=== PATIENT | female | born 1960 | race Caucasian/White ===

== ENCOUNTER 2018-09-21 16:11 | Observation (INO) ==
[2018-09-21] MEDS ORDERED: Ibuprofen 600 MG Tablet PO ONE (16:25)
[2018-09-21] MEDS ORDERED: Sod Chloride 0.9% Inj 1,000 ML IV.SIG SCH (16:30)
[2018-09-21] MEDS ORDERED: Sod Chloride 0.9% Inj 800 ML IV.SIG SCH (16:30)
--- NOTE | 2018-09-21 16:36 | ED ---
HPI General Chief complaint: Respiratory Symptoms Stated complaint: low 02 sat/flu Time Seen by Provider: 09/21/18 16:17 Source: patient and family Mode of arrival: ambulatory Limitations: no limitations History of Present Illness HPI narrative: 57-year-old female with history of COPD, sent in from an urgent care facility for evaluation of influenza A and hypoxia. Patient reports that she began to feel ill yesterday evening with symptoms that included cough, generalized malaise, nausea, and a few episodes of vomiting, and fever. Symptoms worsened today. Patient presents with paperwork from the urgent care facility where she was that shows that she arrived with an oral temp of 104 F and a saturation of 91% on room air. She tested positive for influenza A. She was given 8 mg of Decadron, and albuterol treatment, and a prescription for Tamiflu. The patient took the first dose of Tamiflu prior to arrival. She also had a chest x-ray performed there that showed no acute disease. She feels slightly improved since receiving the aforementioned treatments, however she still feels short of breath, has generalized malaise, generalized weakness. She has had a nonproductive cough. She does feel dyspnea at rest, worse with exertion. Related Data Home Medications Medication Instructions Recorded Confirmed acitretin [Soriatane] 10 mg PO DAILY 09/21/18 09/21/18 albuterol sulfate [Ventolin HFA] 1 puff INHALATION Q6H PRN 09/21/18 09/21/18 alprazolam 0.5 mg PO TID PRN 09/21/18 09/21/18 ezetimibe 10 mg PO DAILY 09/21/18 09/21/18 inhalational spacing device 09/21/18 09/21/18 [Aerochamber Mini] lisinopril 20 mg PO DAILY 09/21/18 09/21/18 omeprazole 20 mg PO DAILY 09/21/18 09/21/18 pravastatin 20 mg PO DAILY 09/21/18 09/21/18 quetiapine 25 mg PO DAILY 09/21/18 09/21/18 timolol maleate 1 drp OPHTHALMIC (EYE) DAILY 09/21/18 09/21/18 triamcinolone acetonide 0.1 % TOPICAL DAILY 09/21/18 09/21/18 umeclidinium-vilanterol [Anoro 1 inh INHALATION Q24H 09/21/18 09/21/18 Ellipta] Allergies Allergy/AdvReac Type Severity Reaction Status Date / Time No Known Allergies Allergy Verified 09/21/18 16:15 Review of Systems ROS: all other systems reviewed are negative [facility] Medical History Medical History COPD (chronic obstructive pulmonary disease) (Acute) High cholesterol (Acute) Hypertension (Acute) Surgical History Surgical History Hx of appendectomy (Acute) Hx of section (Acute) Hx of cholecystectomy (Acute) Hx of hernia repair (Acute) Social History Social History Substance History: No History of Abuse Second Hand Smoke Exposure: Yes Smoking Status: Current every day smoker Tobacco Type: Cigarettes How Often Do You Have a Drink Containing Alcohol: Never Recent Travel in [facility] within the Last 8 Weeks: No Recent Out of Country Travel within the Last 8 Weeks: No Exam Narrative Exam Narrative: GENERAL: Well-developed, well-nourished, awake, alert, appears ill, no apparent distress. SKIN: Focused skin assessment warm/dry. Dry/scaly/desquamation rash on bilateral hands which the patient reports is psoriasis and she is receiving treatment HEAD: Atraumatic. Normocephalic. EYES: Pupils equal and round. No scleral icterus. No injection or drainage. ENT: No nasal bleeding or discharge. Mucous membranes pink and dry. Pharynx with mild erythema without exudates. Uvula is midline. Normal phonation. No drooling or stridor. NECK: Trachea midline. No JVD. No nuchal rigidity. CARDIOVASCULAR: Tachycardic, rate 105. RESPIRATORY: No accessory muscle use. Clear to auscultation. Breath sounds equal bilaterally. GASTROINTESTINAL: Abdomen soft, non-tender, nondistended. MUSCULOSKELETAL: No obvious deformities. No clubbing. No cyanosis. No edema. NEUROLOGICAL: Awake and alert. No obvious cranial nerve deficits. Motor grossly within normal limits. Normal speech. PSYCHIATRIC: Appropriate mood and affect; insight and judgment normal. Course Initial Documented Vital Signs Temperature 99.7 F H 09/21/18 16:12 Pulse Rate 102 H 09/21/18 16:12 Respiratory Rate 20 09/21/18 16:12 Blood Pressure 130/58 L 09/21/18 16:12 Pulse Oximetry 91 L 09/21/18 16:12 Last Documented Vital Signs Temperature 98.9 F 09/21/18 17:05 Pulse Rate 109 H 09/21/18 17:05 Respiratory Rate 22 09/21/18 17:05 Blood Pressure 131/81 09/21/18 17:05 Pulse Oximetry 94 L 09/21/18 17:05 Medical Decision Making MDM Narrative Medical decision making narrative: Patient was seen in urgent care facility and received the following prior to ED arrival: Chest x-ray that showed no acute cardiopulmonary disease. Tylenol. 8 mg of Decadron. Albuterol nebulized treatment. On arrival to the emergency department the patient's O2 saturation is 91% on room air. Her oral temp is 99.8 F and her heart rate is 105 bpm. Sepsis protocol initiated. Vital signs and labs reviewed. The patient was given 3 DuoNeb treatments here in the emergency department. On reassessment she still feels short of breath, weak, and tired. After walking down the [place], the patient's O2 saturation is 88% on room air, and she became severely dyspneic. Patient is here with a COPD exacerbation made worse by influenza A. She will be admitted for further treatment and evaluation. Case discussed with [facility] hospitalist Dr. Stef Bahena who will admit the patient to their service. Medical Screen Exam Complete: Yes Emergency Medical Condition: Yes Differential Diagnosis Differential Diagnosis: Influenza, COPD exacerbation, pneumonia, PE, sepsis, dehydration, metabolic abnormality Lab Data Result diagrams: 09/21/18 16:50 09/21/18 16:50 Lab Results 09/21/18 09/21/18 09/21/18 Range/Units 16:50 16:50 16:50 CBC w Diff Auto diff final WBC 10.2 (4.0-11.0) th/mm3 RBC 4.53 (4.00-5.30) mil/mm3 Hgb 13.6 (11.6-15.3) gm/dL Hct 40.1 (35.0-46.0) % MCV 88.5 (80.0-100.0) fL MCH 29.9 (27.0-34.0) pg MCHC 33.8 (32.0-36.0) % RDW 13.4 (11.6-17.2) % Plt Count 273 (150-450) th/mm3 MPV 8.3 (7.0-11.0) fL Neut % (Auto) 85.6 H (16.0-70.0) % Lymph % (Auto) 6.1 L (9.0-44.0) % [place] % (Auto) 5.7 (0.0-8.0) % Eos % (Auto) 0.1 (0.0-4.0) % Baso % (Auto) 2.5 H (0.0-2.0) % Neut # (Auto) 8.7 H (1.8-7.7) th/mm3 Lymph # (Auto) 0.6 L (1.0-4.8) th/mm3 [place] # (Auto) 0.6 (0.0-0.9) th/mm3 Eos # (Auto) 0.0 (0.0-0.4) th/mm3 Baso # (Auto) 0.3 H (0.0-0.2) th/mm3 WBC Differential . Differential Comment . Sodium 135 L (136-145) meq/L Potassium 3.9 (3.5-5.1) meq/L Chloride 102 (98-107) meq/L Carbon Dioxide 26.4 (21.0-32.0) meq/L Anion Gap 7 (5-15) meq/L BUN 15 (7-18) mg/dL Creatinine 0.93 (0.50-1.00) mg/dL Estimated GFR 62 L (>89) mL/min Random Glucose 110 H (74-106) mg/dL Lactic Acid 1.3 (0.4-2.0) mmol/L Calcium 8.4 L (8.5-10.1) mg/dL Total Bilirubin 0.3 (0.2-1.0) mg/dL AST 62 H (15-37) U/L ALT 70 H (10-53) U/L Alkaline Phosphatase 105 (45-117) U/L Total Protein 7.9 (6.4-8.2) g/dL Albumin 3.9 (3.4-5.0) g/dL Discharge Plan Discharge Disposition Patient Disposition: ED Admit(ED Internal Use Only) Discharge Condition Condition: Stable Discharge Details Diagnosis: Influenza A, COPD exacerbation, Hypoxia Physicians Team ED Provider: Matt Gillette Primary Care Provider: Jorge Wilson Rxs /Orders / Referrals /Forms Prescriptions: No Action quetiapine 25 mg Tablet 25 mg PO DAILY RF: 0 acitretin [Soriatane] 10 mg Capsule 10 mg PO DAILY RF: 0 lisinopril 20 mg Tablet 20 mg PO DAILY RF: 0 alprazolam 0.5 mg Tablet 0.5 mg PO TID PRN (Reason: Agitation) RF: 0 omeprazole 20 mg Capsule,Delayed Release(Dr/Ec) 20 mg PO DAILY RF: 0 pravastatin 20 mg Tablet 20 mg PO DAILY RF: 0 albuterol sulfate [Ventolin HFA] 90 mcg/actuation Hfa Aerosol Inhaler 1 puff INHALATION Q6H PRN (Reason: Bronchodilation) RF: 0 timolol maleate 0.5 % Drops 1 drp OPHTHALMIC (EYE) DAILY RF: 0 ezetimibe 10 mg Tablet 10 mg PO DAILY RF: 0 inhalational spacing device [Aerochamber Mini] Spacer RF: 0 umeclidinium-vilanterol [Anoro Ellipta] 62.5-25 mcg/actuation Blister With Device 1 inh INHALATION Q24H RF: 0 triamcinolone acetonide 0.1 % topical DAILY RF: 0 Discharge Interventions Interventions: Vital Signs Last Done: 09/21/18 17:05 Status ED Status: With Doctor
[2018-09-21 17:09] LABS: Baso # (Auto) 0.3 th/mm3 (0.0-0.2); Baso % (Auto) 2.5 % (0.0-2.0); Eos % (Auto) 0.1 % (0.0-4.0); Hematocrit 40.1 % (35.0-46.0); Hemoglobin 13.6 gm/dL (11.6-15.3); Lymph # (Auto) 0.6 th/mm3 (1.0-4.8); Lymph % (Auto) 6.1 % (9.0-44.0); Mean Corpuscular HGB Conc 33.8 % (32.0-36.0); Mean Corpuscular Hemoglobin 29.9 pg (27.0-34.0); Mean Corpuscular Volume 88.5 fL (80.0-100.0); Mean Platelet Volume 8.3 fL (7.0-11.0); Mono # (Auto) 0.6 th/mm3 (0.0-0.9); Mono % (Auto) 5.7 % (0.0-8.0); Neut # (Auto) 8.7 th/mm3 (1.8-7.7); Neut % (Auto) 85.6 % (16.0-70.0); Platelet Count 273 th/mm3 (150-450); Red Blood Count 4.53 mil/mm3 (4.00-5.30); Red Cell Distribution Width 13.4 % (11.6-17.2); White Blood Count 10.2 th/mm3 (4.0-11.0)
[2018-09-21 17:21] LABS: Chloride 102 meq/L (98-107); Potassium 3.9 meq/L (3.5-5.1); Sodium 135 meq/L (136-145)
[2018-09-21 17:24] LABS: Albumin 3.9 g/dL (3.4-5.0); Anion Gap 7 meq/L (5-15); Calcium 8.4 mg/dL (8.5-10.1); Carbon Dioxide 26.4 meq/L (21.0-32.0); Glucose,Random 110 mg/dL (74-106)
[2018-09-21 17:25] LABS: Blood Urea Nitrogen 15 mg/dL (7-18)
[2018-09-21 17:27] LABS: Alanine Aminotransferase 70 U/L (10-53); Aspartate Aminotransferase 62 U/L (15-37)
[2018-09-21 17:28] LABS: Glomerular Filtration Rate 62 mL/min (>89)
[2018-09-21 17:29] LABS: Total Protein 7.9 g/dL (6.4-8.2)
[2018-09-21 17:30] LABS: Alkaline Phosphatase 105 U/L (45-117)
[2018-09-21 17:55] LABS: Bilirubin,Urine Negative (Negative); Clarity,Urine Clear (Clear); Color,Urine Yellow (Yellw/Straw); Glucose,Urine (UA) Negative (Negative); Leukocyte Esterase,Urine Negative (Negative); Nitrite,Urine Negative (Negative); PH,Urine 5.5 (5.0-8.5); Specific Gravity,Urine 1.025 (1.002-1.035); Urobilinogen,Urine 0.2 mg/dL (Less than 2)
[2018-09-21 18:02] LABS: Bacteria,Urine Few /hpf; Squamous Epithelial Cell,Urine Greater than 10 /hpf (0-5)
[2018-09-21] MEDS ORDERED: Acetaminophen 325 MG Tablet PO PRN (18:24)
[2018-09-21] MEDS ORDERED: Ibuprofen 400 MG Tablet PO PRN (18:27)
[2018-09-21] MEDS ORDERED: guaiFENesin/Dextromethorphan 200 MG/20 MG 10 ML UDC PO PRN (18:46)
[2018-09-21] MEDS ORDERED: ALPRAZolam 0.5 MG Tablet PO PRN (18:47)
--- NOTE | 2018-09-21 19:04 | P.HP ---
History of Present Illness Service: medicine Primary Care Physician: Jorge Wilson MD, PhD History of Present Illness: 57 year old female with hx of COPD was sent from the urgent care today after testing positive for Influenza A and hypoxia on exertion. The patient states she started feeling poorly last night when she developed sore throat, headache , cough fever and body aches. She also relates nausea and vomiting and states she has not eaten today. No real abdominal pain. She had a temp of 103 and was seen at the [facility] urgent care where she tested positive for influenza A. She was treated with 8 mg decadron and nebulizers. Xray done was negative. However when she ambulated she became more tachypneic and her pulse ox dropped to 88 -90 %. It was recommended she come to the ER. The patient was given a prescription of Tamiflu and she took the first dose already. She has a hx of copd and smokes 1/2 to 3/4 pack a day for 40 yrs. She tells me she is no longer smoking. Up until last evening she states she was doing well except for a recent and new diagnosis of Psoriasis. 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 - Diagnosis (1) Influenza A (2) COPD exacerbation (3) Hypertension Inpatient Certification: I certify that the inpatient services were ordered in accordance with Medicare regulations governing the order. This includes certification that hospital inpatient services are reasonable and necessary and in the case of services not specified as inpatient-only under 42 CFR 419.22(n), that they are appropriately provided as inpatient services in accordance to with the 2-midnight benchmark under 43 CFR 412.3(e) Review of Systems All other systems reviewed negative except as stated in HPI PMFSH - History History Provided By: Patient, Medical Record - Medical History Medical History: Medical History (Last Updated 09/21/18 @ 18:16 by Shaneka Booth MD) Psoriasis (Acute) Hypertension (Acute) COPD (chronic obstructive pulmonary disease) (Acute) High cholesterol - Surgical History Surgical History: Surgical History (Last Reviewed 09/21/18 @ 18:16 by Shaneka Booth MD) Hx of appendectomy Hx of section Hx of cholecystectomy Hx of hernia repair - Social History I have reviewed the patient's Social History: Yes - Tobacco History Second Hand Smoke Exposure: Yes Tobacco Use In Past 30 Days: Yes Smoking Status: Current every day smoker Tobacco Type: Cigarettes - Alcohol History How Often Do You Have a Drink Containing Alcohol: Never - Substance Use History Substance History: No History of Abuse - Travel History Recent Travel in the [place] Within the Last 8 Weeks: No Recent Travel Out of the Country Within the Last 8 Weeks: No - Immunization History Tetanus Immunization: >5 Years Medications and Allergies Active Medications: Active Medications Acetaminophen (Tylenol) 650 mg PO Q4H PRN PRN Reason: Temp > 100.4 Albuterol (Duoneb Neb (Dimitri)) 1 ampul NEB Q4HR WHILE AWAKE NEB DIMITRI Albuterol (Duoneb Neb (Prn)) 1 ampul NEB Q2HR NEB PRN PRN Reason: SHORTNESS OF BREATH Alprazolam (Xanax) 0.5 mg PO TID PRN PRN Reason: Agitation Ezetimibe (Zetia) 10 mg PO DAILY DIMITRI Enoxaparin Sodium (Lovenox Inj) 30 mg SQ Q24H DIMITRI Guaifenesin/Dextromethorphan (Robitussin Dm Liq) 10 ml PO Q4H PRN PRN Reason: CHEST CONGESTION AND/OR COUGH Sodium Chloride (Ns Inj) 1,000 mls @ 0 mls/hr IV.SIG .Q0M DIMITRI Sodium Chloride (Ns Inj) 800 mls @ 0 mls/hr IV.SIG .Q0M DIMITRI Sodium Chloride (Ns Inj) 1,000 mls @ 125 mls/hr IV.CONT .Q8H DIMITRI Ibuprofen (Motrin) 400 mg PO Q8H PRN PRN Reason: FEVER > 100.4 F Lisinopril (Prinivil) 20 mg PO DAILY REPLACED BY [facility] Methylprednisolone Sodium Succinate (Solumedrol Inj) 60 mg IV.PUSH Q6H DIMITRI Ondansetron HCl (Zofran Inj) 4 mg IV.PUSH Q6H PRN PRN Reason: NAUSEA OR VOMITING Oseltamivir Phosphate (Tamiflu) 75 mg PO BID REPLACED BY [facility] Pantoprazole Sodium (Protonix) 20 mg PO DAILY REPLACED BY [facility] Pravastatin Sodium (Pravachol) 20 mg PO DAILY REPLACED BY [facility] Quetiapine Fumarate (Seroquel) 25 mg PO HS DIMITRI Sodium Chloride (Ns Flush) 2 ml IV.FLUSH BID DIMITRI Sodium Chloride (Ns Flush) 2 ml IV.FLUSH PRN PRN PRN Reason: FLUSH AFTER USING IV ACCESS Timolol Maleate (Timoptic 0.5% Drops) 1 drops EACH EYE DAILY DIMITRI Triamcinolone Acetonide (Aristocort 0.1% Cream) 1 applicatio TOPICAL DAILY DIMITRI Allergies Allergy/AdvReac Type Severity Reaction Status Date / Time No Known Allergies Allergy Verified 09/21/18 16:15 Home Medications Medication Instructions Recorded Confirmed Type acitretin [Soriatane] 10 mg PO DAILY 09/21/18 09/21/18 History albuterol sulfate [Ventolin HFA] 1 puff INHALATION Q6H PRN 09/21/18 09/21/18 History alprazolam 0.5 mg PO TID PRN 09/21/18 09/21/18 History ezetimibe 10 mg PO DAILY 09/21/18 09/21/18 History inhalational spacing device 09/21/18 09/21/18 History [Aerochamber Mini] lisinopril 20 mg PO DAILY 09/21/18 09/21/18 History omeprazole 20 mg PO DAILY 09/21/18 09/21/18 History pravastatin 20 mg PO DAILY 09/21/18 09/21/18 History quetiapine 25 mg PO DAILY 09/21/18 09/21/18 History timolol maleate 1 drp OPHTHALMIC (EYE) DAILY 09/21/18 09/21/18 History triamcinolone acetonide 0.1 % TOPICAL DAILY 09/21/18 09/21/18 History umeclidinium-vilanterol [Anoro 1 inh INHALATION Q24H 09/21/18 09/21/18 History Ellipta] Exam Vital signs: Vital Signs 09/21/18 16:12 09/21/18 16:44 09/21/18 16:47 Temperature 99.7 F H Pulse Rate 102 H 102 H Respiratory Rate 20 20 Blood Pressure 130/58 L Pulse Oximetry 91 L 94 L 09/21/18 17:05 09/21/18 18:18 09/21/18 18:23 Temperature 98.9 F Pulse Rate 109 H 101 H Respiratory Rate 22 20 Blood Pressure 131/81 123/35 L Pulse Oximetry 94 L 94 L 94 L Intake & Output 09/20/18 09/21/18 09/21/18 18:59 06:59 18:59 Weight 93 kg - Constitutional mild distress, obese, cooperative - Routine HEENT Exam Head: Present: normocephalic Eye: Present: EOMI ENT: Present: mucous membranes moist, oropharynx clear, TM's clear bilaterally - Routine Neck Exam Present: supple - Routine Respiratory Exam Present: wheezes, diminished air movement Comments: fine wheezes through out - Routine Cardiovascular Exam Present: tachycardia - Routine Abdominal Exam Present: soft, normoactive bowel sounds - Routine Extremities Exam Present: full ROM - Routine Skin Exam Present: warm Comments: psoriatic peeling in ears, palms ,finger - Routine Neurological Exam Present: alert, oriented X3, moving all extremities, normal speech - Routine Psychiatric Exam Present: normal affect, normal thought process Results - Labs CBC & Chem 7: 09/21/18 16:50 09/21/18 16:50 Labs: Laboratory Results - last 24 hr 09/21/18 09/21/18 09/21/18 16:50 16:50 16:50 CBC w Diff Auto diff final WBC 10.2 RBC 4.53 Hgb 13.6 Hct 40.1 MCV 88.5 MCH 29.9 MCHC 33.8 RDW 13.4 Plt Count 273 MPV 8.3 Neut % (Auto) 85.6 H Lymph % (Auto) 6.1 L [place] % (Auto) 5.7 Eos % (Auto) 0.1 Baso % (Auto) 2.5 H Neut # (Auto) 8.7 H Lymph # (Auto) 0.6 L [place] # (Auto) 0.6 Eos # (Auto) 0.0 Baso # (Auto) 0.3 H WBC Differential . Differential Comment . Sodium 135 L Potassium 3.9 Chloride 102 Carbon Dioxide 26.4 Anion Gap 7 BUN 15 Creatinine 0.93 Estimated GFR 62 L Random Glucose 110 H Lactic Acid 1.3 Calcium 8.4 L Total Bilirubin 0.3 AST 62 H ALT 70 H Alkaline Phosphatase 105 Total Protein 7.9 Albumin 3.9 Ur Collection Type Urine Color Urine Clarity Urine pH Ur Specific [place] Urine Protein Urine Glucose (UA) Urine Ketones Urine Occult Blood Urine Nitrate Urine Bilirubin Urine Urobilinogen Ur Leukocyte Esterase Urine RBC Urine WBC Ur Squamous Epith Cells Ur Renal Epithelial Cell Urine Bacteria Hyaline Casts Fine Granular Casts Micro UA Comment Ur Microscopic Review Urine Culture Comments 09/21/18 17:44 CBC w Diff WBC RBC Hgb Hct MCV MCH MCHC RDW Plt Count MPV Neut % (Auto) Lymph % (Auto) [place] % (Auto) Eos % (Auto) Baso % (Auto) Neut # (Auto) Lymph # (Auto) [place] # (Auto) Eos # (Auto) Baso # (Auto) WBC Differential Differential Comment Sodium Potassium Chloride Carbon Dioxide Anion Gap BUN Creatinine Estimated GFR Random Glucose Lactic Acid Calcium Total Bilirubin AST ALT Alkaline Phosphatase Total Protein Albumin Ur Collection Type Clean catch Urine Color Yellow Urine Clarity Clear Urine pH 5.5 Ur Specific [place] 1.025 Urine Protein Trace Urine Glucose (UA) Negative Urine Ketones Negative Urine Occult Blood Moderate H Urine Nitrate Negative Urine Bilirubin Negative Urine Urobilinogen 0.2 Ur Leukocyte Esterase Negative Urine RBC 4-15 H Urine WBC 6-8 H Ur Squamous Epith Cells Greater than 10 H Ur Renal Epithelial Cell 1-5 H Urine Bacteria Few H Hyaline Casts 11-30 H Fine Granular Casts 1-3 H Micro UA Comment Culture not ind Ur Microscopic Review Microscopic reviewed Urine Culture Comments Culture not ind Caprini VTE Risk Assessment Caprini VTE Risk Assessment: Moderate/High Risk (score >= 2) Caprini Risk Assessment Model: Point Value = 1 Point Value = 2 Point Value = 3 Point Value = 5 Age 41-60 Minor surgery BMI > 25 kg/m2 Swollen legs Varicose veins or History of unexplained or recurrent spontaneous Oral contraceptives or hormone replacement Sepsis (< 1 month) Serious lung disease, including pneumonia (< 1 month) Abnormal pulmonary function Acute myocardial infarction Congestive heart failure (< 1 month) History of inflammatory bowel disease Medical patient at bed rest Age 61-74 Arthroscopic surgery Major open surgery (> 45 min) Laparoscopic surgery (> 45 min) Malignancy Confined to bed (> 72 hours) Immobilizing plaster cast Central venous access Age >= 75 History of VTE Family history of VTE Factor V Leiden Prothrombin [id number] Lupus anticoagulant Anticardiolipin antibodies Elevated serum homocysteine Heparin-induced thrombocytopenia Other congenital or acquired thrombophilia Stroke (< 1 month) Elective arthroplasty Hip, pelvis, or leg fracture Acute spinal cord injury (< 1 month) Prophylaxis Regimen: Total Risk Factor Score Risk Level Prophylaxis Regimen 0-1 Low Early ambulation 2 Moderate Order ONE of the following: *Sequential Compression Device (SCD) *Heparin 5000 units SQ BID 3-4 Higher Order ONE of the following medications: *Heparin 5000 units SQ TID *Enoxaparin/Lovenox 40 mg SQ daily (WT < 150 kg, CrCl > 30 mL/min) *Enoxaparin/Lovenox 30 mg SQ daily (WT < 150 kg, CrCl > 10-29 mL/min) *Enoxaparin/Lovenox 30 mg SQ BID (WT < 150 kg, CrCl > 30 mL/min) AND/OR *Sequential Compression Device (SCD) 5 or more Highest Order ONE of the following medications: *Heparin 5000 units SQ TID (Preferred with Epidurals) *Enoxaparin/Lovenox 40 mg SQ daily (WT < 150 kg, CrCl > 30 mL/min) *Enoxaparin/Lovenox 30 mg SQ daily (WT < 150 kg, CrCl > 10-29 mL/min) *Enoxaparin/Lovenox 30 mg SQ BID (WT < 150 kg, CrCl > 30 mL/min) AND *Sequential Compression Device (SCD) Assessment and Plan - Assessment (1) Influenza A Code(s): J10.1 - Influenza due to other identified influenza virus with other respiratory manifestations Status: Acute Plan: started on tamiflu, cont symptomatic treatment, tylenol. motrin for fever, bodyaches, hydrate (2) COPD exacerbation Code(s): J44.1 - Chronic obstructive pulmonary disease with (acute) exacerbation Status: Acute Plan: solumedrol, she felt the duonebs helped her will start at Q4 while awake (3) Hypertension Code(s): I10 - Essential (primary) hypertension Status: Acute Plan: cont home meds, monitor - Plan Code Status: patient (3) Hypertension Qualifiers: Hypertension type: essential hypertension Qualified Code(s): I10 - Essential (primary) hypertension
[2018-09-21] MEDS: Sod Chloride 0.9% Inj 1,000 ML IV.CONT SCH (19:14)
[2018-09-21] MEDS: MethylPREDNISolone Sod Succinate Inj 40 MG/ML Vial IV.PUSH SCH (21:28)
[2018-09-21] MEDS: QUEtiapine 25 MG Tablet PO SCH (21:29)
[2018-09-21] MEDS: Oseltamivir Phosphate 75 MG Capsule PO SCH (21:29)
[2018-09-21] MEDS: Enoxaparin Inj 30 MG/0.3 ML Syringe SQ SCH (21:29)
[2018-09-22] MEDS: MethylPREDNISolone Sod Succinate Inj 40 MG/ML Vial IV.PUSH SCH ×4 (01:11→20:12)
[2018-09-22] MEDS: Sod Chloride 0.9% Inj 1,000 ML IV.CONT SCH ×3 (06:16→18:10)
[2018-09-22 06:55] LABS: Baso % (Auto) 0.3 % (0.0-2.0); Eos % (Auto) 0.1 % (0.0-4.0); Hematocrit 36.7 % (35.0-46.0); Hemoglobin 12.8 gm/dL (11.6-15.3); Lymph # (Auto) 0.4 th/mm3 (1.0-4.8); Lymph % (Auto) 7.7 % (9.0-44.0); Mean Corpuscular HGB Conc 34.9 % (32.0-36.0); Mean Corpuscular Hemoglobin 31.5 pg (27.0-34.0); Mean Corpuscular Volume 90.3 fL (80.0-100.0); Mean Platelet Volume 8.5 fL (7.0-11.0); Mono % (Auto) 0.7 % (0.0-8.0); Neut # (Auto) 4.9 th/mm3 (1.8-7.7); Neut % (Auto) 91.2 % (16.0-70.0); Platelet Count 230 th/mm3 (150-450); Red Blood Count 4.07 mil/mm3 (4.00-5.30); Red Cell Distribution Width 13.8 % (11.6-17.2); White Blood Count 5.3 th/mm3 (4.0-11.0)
[2018-09-22 07:51] LABS: Alanine Aminotransferase 75 U/L (10-53); Alkaline Phosphatase 88 U/L (45-117); Anion Gap 4 meq/L (5-15); Aspartate Aminotransferase 60 U/L (15-37); Blood Urea Nitrogen 12 mg/dL (7-18); Calcium 8.3 mg/dL (8.5-10.1); Carbon Dioxide 26.6 meq/L (21.0-32.0); Chloride 110 meq/L (98-107); Glomerular Filtration Rate Greater Than 89 mL/min (>89); Glucose,Random 173 mg/dL (74-106); Potassium 3.8 meq/L (3.5-5.1); Sodium 141 meq/L (136-145); Total Protein 6.7 g/dL (6.4-8.2)
[2018-09-22 07:52] LABS: Albumin 3.2 g/dL (3.4-5.0)
[2018-09-22] MEDS ORDERED: Lisinopril 20 MG Tablet PO SCH (09:00)
[2018-09-22] MEDS: Oseltamivir Phosphate 75 MG Capsule PO SCH ×2 (09:54→20:13)
[2018-09-22] MEDS: Pantoprazole Sodium 20 MG DR Tablet PO SCH (09:54)
[2018-09-22] MEDS: Ezetimibe 10 MG Tablet PO SCH (09:55)
[2018-09-22] MEDS: Timolol 0.5% Drops 5 ML Bottle EACH EYE SCH (10:56)
--- NOTE | 2018-09-22 13:06 | P.PN ---
Subjective Interval history: tolerating breathing treatments , ambulating to bathroom,denied sob with ambulation tolerating meals, Physical Exam Vital signs: Vital Signs 09/21/18 16:12 09/21/18 16:44 09/21/18 16:47 Temperature 99.7 F H Pulse Rate 102 H 102 H Respiratory Rate 20 20 Blood Pressure 130/58 L Pulse Oximetry 91 L 94 L 09/21/18 17:05 09/21/18 18:18 09/21/18 18:23 Temperature 98.9 F Pulse Rate 109 H 101 H Respiratory Rate 22 20 Blood Pressure 131/81 123/35 L Pulse Oximetry 94 L 94 L 94 L 09/21/18 19:15 09/21/18 20:21 09/21/18 21:26 Temperature 98.3 F 97.8 F Pulse Rate 98 H 89 91 H Respiratory Rate 20 18 16 Blood Pressure 128/65 152/69 H Pulse Oximetry 95 94 L 93 L 09/22/18 00:00 09/22/18 01:20 09/22/18 07:48 Temperature 100.3 F H 97.0 F L Pulse Rate 86 77 Respiratory Rate 16 18 Blood Pressure 116/77 Pulse Oximetry 93 L 93 L 09/22/18 08:00 09/22/18 11:11 Temperature 96.4 F L Pulse Rate 97 H 80 Respiratory Rate 20 16 Blood Pressure 96/53 L Pulse Oximetry 92 L Intake & Output 09/21/18 09/22/18 09/22/18 18:59 06:59 18:59 Intake Total 1000 / 1000 1000 / 1000 Balance 1000 / 1000 1000 / 1000 Weight 93 kg 89.5 kg Intake: IV 1000 / 1000 1000 / 1000 NS Inj 1,000 ML @ 125 mls/hr IV 1000 / 1000 1000 / 1000 .CONT .Q8H [facility] Rx#:[id number] Other: Weight On Admission 89.5 kg - Constitutional no acute distress Comments: wearing oxygen - Routine HEENT Exam Head: Present: normocephalic - Routine Neck Exam Present: supple - Routine Respiratory Exam Present: prolonged expiratory phase Comments: improved air movement, no wheezing - Routine Cardiovascular Exam Present: RRR - Routine Abdominal Exam Present: soft, normoactive bowel sounds - Routine Skin Exam Comments: peeling hands, ears - Routine Neurological Exam Present: alert, oriented X3 - Routine Psychiatric Exam Present: normal affect, normal thought process Results - Labs CBC & Chem 7: 09/22/18 05:22 09/22/18 05:22 Laboratory Results - last 24 hr 09/21/18 09/21/18 09/21/18 16:50 16:50 16:50 CBC w Diff Auto diff final WBC 10.2 RBC 4.53 Hgb 13.6 Hct 40.1 MCV 88.5 MCH 29.9 MCHC 33.8 RDW 13.4 Plt Count 273 MPV 8.3 Neut % (Auto) 85.6 H Lymph % (Auto) 6.1 L [place] % (Auto) 5.7 Eos % (Auto) 0.1 Baso % (Auto) 2.5 H Neut # (Auto) 8.7 H Lymph # (Auto) 0.6 L [place] # (Auto) 0.6 Eos # (Auto) 0.0 Baso # (Auto) 0.3 H WBC Differential . Differential Comment . Sodium 135 L Potassium 3.9 Chloride 102 Carbon Dioxide 26.4 Anion Gap 7 BUN 15 Creatinine 0.93 Estimated GFR 62 L Random Glucose 110 H Lactic Acid 1.3 Calcium 8.4 L Total Bilirubin 0.3 AST 62 H ALT 70 H Alkaline Phosphatase 105 Total Protein 7.9 Albumin 3.9 Ur Collection Type Urine Color Urine Clarity Urine pH Ur Specific [place] Urine Protein Urine Glucose (UA) Urine Ketones Urine Occult Blood Urine Nitrate Urine Bilirubin Urine Urobilinogen Ur Leukocyte Esterase Urine RBC Urine WBC Ur Squamous Epith Cells Ur Renal Epithelial Cell Urine Bacteria Hyaline Casts Fine Granular Casts Micro UA Comment Ur Microscopic Review Urine Culture Comments 09/21/18 09/22/18 09/22/18 17:44 05:22 05:22 CBC w Diff Auto diff final WBC 5.3 RBC 4.07 Hgb 12.8 Hct 36.7 MCV 90.3 MCH 31.5 MCHC 34.9 RDW 13.8 Plt Count 230 MPV 8.5 Neut % (Auto) 91.2 H Lymph % (Auto) 7.7 L [place] % (Auto) 0.7 Eos % (Auto) 0.1 Baso % (Auto) 0.3 Neut # (Auto) 4.9 Lymph # (Auto) 0.4 L [place] # (Auto) 0.0 Eos # (Auto) 0.0 Baso # (Auto) 0.0 WBC Differential . Differential Comment . Sodium 141 Potassium 3.8 Chloride 110 H D Carbon Dioxide 26.6 Anion Gap 4 L BUN 12 Creatinine 0.53 Estimated GFR Greater than 89 Random Glucose 173 H Lactic Acid Calcium 8.3 L Total Bilirubin 0.2 AST 60 H ALT 75 H Alkaline Phosphatase 88 Total Protein 6.7 D Albumin 3.2 L D Ur Collection Type Clean catch Urine Color Yellow Urine Clarity Clear Urine pH 5.5 Ur Specific [place] 1.025 Urine Protein Trace Urine Glucose (UA) Negative Urine Ketones Negative Urine Occult Blood Moderate H Urine Nitrate Negative Urine Bilirubin Negative Urine Urobilinogen 0.2 Ur Leukocyte Esterase Negative Urine RBC 4-15 H Urine WBC 6-8 H Ur Squamous Epith Cells Greater than 10 H Ur Renal Epithelial Cell 1-5 H Urine Bacteria Few H Hyaline Casts 11-30 H Fine Granular Casts 1-3 H Micro UA Comment Culture not ind Ur Microscopic Review Microscopic reviewed Urine Culture Comments Culture not ind Microbiology 09/21/18 16:50 Blood - Peripheral Aerobic Blood Culture - Preliminary No growth in 1 day 09/21/18 16:50 Blood - Peripheral Anaerobic Blood Culture - Preliminary No growth in 1 day 09/21/18 16:59 Blood - Peripheral Aerobic Blood Culture - Preliminary No growth in 1 day 09/21/18 16:59 Blood - Peripheral Anaerobic Blood Culture - Preliminary No growth in 1 day Assessment and Plan - Assessment (1) Influenza A Code(s): J10.1 - Influenza due to other identified influenza virus with other respiratory manifestations Status: Acute Plan: started on tamiflu, cont symptomatic treatment, tylenol. motrin for fever, bodyaches, hydrate, doing better this am (2) COPD exacerbation Code(s): J44.1 - Chronic obstructive pulmonary disease with (acute) exacerbation Status: Acute Plan: solumedrol, she felt the duonebs helped her will continue at Q4 while awake (3) Hypertension Code(s): I10 - Essential (primary) hypertension Status: Acute Plan: blood pressure lower this am, likely due to dehydration, lisinopril held, cont iv fluids (4) Hematuria Code(s): R31.9 - Hematuria, unspecified Status: Acute Plan: she had hematuria on admission, would follow up with renal ultrasound given smoking hx - Plan Discussed Condition With: patient (3) Hypertension Qualifiers: Hypertension type: essential hypertension Qualified Code(s): I10 - Essential (primary) hypertension (4) Hematuria Qualifiers: Hematuria type: other microscopic Qualified Code(s): R31.29 - Other microscopic hematuria; R31.2 - Other microscopic hematuria
[2018-09-22] MEDS: Enoxaparin Inj 30 MG/0.3 ML Syringe SQ SCH (20:10)
[2018-09-22] MEDS: QUEtiapine 25 MG Tablet PO SCH (20:12)
[2018-09-23] MEDS: Sod Chloride 0.9% Inj 1,000 ML IV.CONT SCH ×2 (02:17→10:29)
[2018-09-23 06:27] LABS: Baso % (Auto) 0.2 % (0.0-2.0); Hematocrit 35.8 % (35.0-46.0); Hemoglobin 11.9 gm/dL (11.6-15.3); Mean Corpuscular HGB Conc 33.1 % (32.0-36.0); Mean Corpuscular Hemoglobin 29.8 pg (27.0-34.0); Mean Corpuscular Volume 89.9 fL (80.0-100.0); Mean Platelet Volume 8.3 fL (7.0-11.0); Mono # (Auto) 0.6 th/mm3 (0.0-0.9); Mono % (Auto) 3.7 % (0.0-8.0); Neut # (Auto) 14.5 th/mm3 (1.8-7.7); Neut % (Auto) 90.1 % (16.0-70.0); Platelet Count 241 th/mm3 (150-450); Red Blood Count 3.98 mil/mm3 (4.00-5.30); Red Cell Distribution Width 13.6 % (11.6-17.2); White Blood Count 16.1 th/mm3 (4.0-11.0)
[2018-09-23 06:34] LABS: Chloride 112 meq/L (98-107); Potassium 4.2 meq/L (3.5-5.1); Sodium 143 meq/L (136-145)
[2018-09-23 06:44] LABS: Albumin 2.9 g/dL (3.4-5.0); Calcium 7.9 mg/dL (8.5-10.1)
[2018-09-23 06:45] LABS: Anion Gap 6 meq/L (5-15); Blood Urea Nitrogen 13 mg/dL (7-18); Carbon Dioxide 25.1 meq/L (21.0-32.0); Glucose,Random 151 mg/dL (74-106)
[2018-09-23 06:48] LABS: Alanine Aminotransferase 69 U/L (10-53); Aspartate Aminotransferase 51 U/L (15-37)
[2018-09-23 06:49] LABS: Glomerular Filtration Rate Greater Than 89 mL/min (>89)
[2018-09-23 06:50] LABS: Alkaline Phosphatase 74 U/L (45-117)
[2018-09-23 08:44] VITALS: BP 130/79; PULSE 81; RESP 20; TEMP 96.6
[2018-09-23] MEDS: MethylPREDNISolone Sod Succinate Inj 40 MG/ML Vial IV.PUSH SCH (08:56)
[2018-09-23] MEDS: Pantoprazole Sodium 20 MG DR Tablet PO SCH (08:56)
[2018-09-23] MEDS: Ezetimibe 10 MG Tablet PO SCH (08:56)
[2018-09-23] MEDS: Oseltamivir Phosphate 75 MG Capsule PO SCH (08:56)
[2018-09-23] MEDS: Timolol 0.5% Drops 5 ML Bottle EACH EYE SCH (08:57)
--- NOTE | 2018-09-23 11:04 | P.PN ---
Subjective Interval history: Feels better, was cleaning herself off w/o oxygen, no fever, decreased sob Physical Exam Vital signs: Vital Signs 09/22/18 11:11 09/22/18 12:00 09/22/18 15:19 Temperature 97.8 F Pulse Rate 80 84 80 Respiratory Rate 16 20 16 Blood Pressure 115/61 Pulse Oximetry 95 09/22/18 16:50 09/22/18 19:40 09/22/18 20:00 Temperature 97.3 F L 96.7 F L Pulse Rate 84 84 77 Respiratory Rate 20 18 18 Blood Pressure 120/61 128/66 Pulse Oximetry 92 L 95 95 09/22/18 23:59 09/23/18 07:27 09/23/18 08:00 Temperature 97.5 F L 96.6 F L Pulse Rate 70 63 81 Respiratory Rate 18 19 20 Blood Pressure 120/61 130/79 Pulse Oximetry 93 L 96 91 L Intake & Output 09/22/18 09/23/18 09/23/18 18:59 06:59 18:59 Intake Total 3012 / 3012 1000 / 1000 1000 / 1000 Balance 3012 / 3012 1000 / 1000 1000 / 1000 Weight 91.8 kg Intake: IV 1999 / 1999 1000 / 1000 1000 / 1000 NS Inj 1,000 ML @ 125 mls/hr IV 2000 / 2000 1000 / 1000 1000 / 1000 .CONT .Q8H [facility] Rx#:[id number] Oral 1012 / 1012 Other: # Voids 8 4 # Bowel Movements 0 - Constitutional no acute distress, obese - Routine HEENT Exam Head: Present: normocephalic Eye: Present: EOMI - Routine Respiratory Exam Present: prolonged expiratory phase. Absent: wheezes - Routine Cardiovascular Exam Present: RRR - Routine Abdominal Exam Present: soft, normoactive bowel sounds - Routine Extremities Exam Absent: edema - Routine Skin Exam Comments: psoriatic patches on hands improved - Routine Neurological Exam Present: alert, oriented X3 - Routine Psychiatric Exam Present: normal affect, normal thought process Results - Labs CBC & Chem 7: 09/23/18 06:00 09/23/18 06:00 Laboratory Results - last 24 hr 09/23/18 09/23/18 06:00 06:00 CBC w Diff Auto diff final WBC 16.1 H RBC 3.98 L Hgb 11.9 Hct 35.8 MCV 89.9 MCH 29.8 MCHC 33.1 RDW 13.6 Plt Count 241 MPV 8.3 Neut % (Auto) 90.1 H Lymph % (Auto) 6.[address] [place] % (Auto) 3.7 Eos % (Auto) 0.0 Baso % (Auto) 0.2 Neut # (Auto) 14.5 H Lymph # (Auto) 1.0 [place] # (Auto) 0.6 Eos # (Auto) 0.0 Baso # (Auto) 0.0 WBC Differential . Differential Comment . Sodium 143 Potassium 4.2 Chloride 112 H Carbon Dioxide 25.1 Anion Gap 6 BUN 13 Creatinine 0.57 Estimated GFR Greater than 89 Random Glucose 151 H Calcium 7.9 L Total Bilirubin 0.1 L AST 51 H ALT 69 H Alkaline Phosphatase 74 Total Protein 6.0 L D Albumin 2.9 L Microbiology 09/21/18 16:50 Blood - Peripheral Aerobic Blood Culture - Preliminary No growth in 1 day 09/21/18 16:50 Blood - Peripheral Anaerobic Blood Culture - Preliminary No growth in 1 day 09/21/18 16:59 Blood - Peripheral Aerobic Blood Culture - Preliminary No growth in 1 day 09/21/18 16:59 Blood - Peripheral Anaerobic Blood Culture - Preliminary No growth in 1 day Assessment and Plan - Assessment (1) Influenza A Code(s): J10.1 - Influenza due to other identified influenza virus with other respiratory manifestations Status: Acute Plan: on tamiflu, has been afebrile, body ache improved (2) COPD exacerbation Code(s): J44.1 - Chronic obstructive pulmonary disease with (acute) exacerbation Status: Acute Plan: responded to solumedol and nebulizers, she has prednisone from [facility], will discharge on nebulizer, check walk test before discharg, enocuraged to stay off cigarettes (3) Hypertension Code(s): I10 - Essential (primary) hypertension Status: Chronic Plan: blood pressure lower this am, likely due to dehydration, lisinopril held, cont iv fluids, blood pressure improved, would resume lisniopril (4) Hematuria Code(s): R31.9 - Hematuria, unspecified Status: Chronic Plan: she had hematuria on admission, would follow up with renal ultrasound given smoking hx as she states she thinks she may have had some blood in urine before - Plan discharge home today with cont tamiflu, prednisone and nebulizer after walk test Discussed Condition With: patient and daughter (3) Hypertension Qualifiers: Hypertension type: essential hypertension Qualified Code(s): I10 - Essential (primary) hypertension (4) Hematuria Qualifiers: Hematuria type: other microscopic Qualified Code(s): R31.29 - Other microscopic hematuria; R31.2 - Other microscopic hematuria
[2018-09-23 11:22] VITALS: O2SAT 96
== END 2018-09-23 12:29 | disposition home or self-care (01) ==
LOC: PHED 16:11 → INTOOBSV 17:59 → PHEDA 17:59 → PH3 19:30
PROVIDERS: ADMIT Legal Medicine; ATTEND Legal Medicine
DX: R09.02 Hypoxemia; E86.0 Dehydration; F17.210 Nicotine dependence, cigarettes, uncomplicated; I10 Essential (primary) hypertension; E78.00 Pure hypercholesterolemia, unspecified; Z90.49 Acquired absence of other specified parts of digestive tract; J44.1 Chronic obstructive pulmonary disease with (acute) exacerbation; J10.1 Influenza due to other identified influenza virus with other respiratory manifestations
CPT/HCPCS: 80053; 81001; 83605; 85025; 87040; 94618; 94620; 94640; 94664; 94665; 96361; 96372; 96374; 96376; 99285; G0378; J1650; J2920; J7030